=== PATIENT | female | born 1945 | race Caucasian/White ===

== ENCOUNTER 2018-08-20 10:45 | Observation (INO) | payer OTHER ==
[~2018-08-20] VITALS: Ht 160 cm; Wt 81.6 kg
[2018-08-20] VITALS (11 sets, daily range): BP systolic 85–122; BP diastolic 42–92
[2018-08-20 11:21] LABS: ABSOLUTE NEUTROPHILS 3.4 thou/uL (1.4-8.2); EOSINOPHILS 2.9 % (0.0-3.0); HEMATOCRIT 41.6 % (37.0-47.0); HEMOGLOBIN 13.9 gm/dL (12.0-15.0); LYMPHOCYTES 39.4 % (24.0-44.0); MCH 28.9 pg (26.0-34.0); MCHC 33.5 g/dL (28.0-37.0); MCV 86.3 fL (80.0-100.0); MONOCYTES 6.6 % (1.0-8.0); PLATELET COUNT 223 thou/uL (150-400); POLYS 50.1 % (36.0-66.0); RBC 4.82 mil/uL (4.20-5.00); RDW 13.5 % (10.5-14.5); WBC 6.7 thou/uL (4.0-11.0)
[2018-08-20 11:28] LABS: CALCIUM 9.8 mg/dL (8.5-10.1); CREATININE 0.9 mg/dL (0.6-1.0); POTASSIUM 3.7 mmol/L (3.5-5.1)
[2018-08-20 11:32] LABS: APTT 29.5 Seconds (24.5-32.8); PROTIME 10.4 Seconds (9.3-11.4)
[2018-08-20 11:34] LABS: ALBUMIN 3.3 g/dL (3.4-5.0); TOTAL BILIRUBIN 0.6 mg/dL (<0.1-1.0); TOTAL PROTEIN 7.2 g/dL (6.4-8.2)
[2018-08-20] MEDS ORDERED: SORINE 80 MG TA80 M1 PO (12:07)
[2018-08-20] MEDS ORDERED: XARELTO20 MG PO (12:08)
[2018-08-20] MEDS ORDERED: XANAX2 MG PO (12:09)
[2018-08-20] MEDS ORDERED: FLEXERIL PO (12:10)
[2018-08-20] MEDS ORDERED: VITAMIN D5000 UNIT PO (12:11)
[2018-08-20] MEDS ORDERED: TYLENOL325 MG PO (12:12)
[2018-08-20] MEDS ORDERED: LOPRESSOR25 PO (12:14)
[2018-08-20] MEDS ORDERED: LASIX 40 MG TAB40 M2 PO (12:16)
--- NOTE | 2018-08-20 15:43 | NUR ---
PT ARRIVED TO UNIT APPROX 1540. FAMILY PRESENT AT BEDSIDE. PT ALERT AND ORIENTED X4. DENIES PAIN AND SOA. VSS. POST PACEMAKER PROTOCOL INITIATED. LEFT CHEST PACEMAKER SITE C/D/I. CLOSED EXTERNALLY WITH SURGICAL GLUE. AV PACED ON THE ADMISSION TELE STRIP. PT AND FAMILY UPDATED ON POC. ALL DENY QUESTIONS OR CONCERNS REGARDING POC AT THIS TIME.
--- NOTE | 2018-08-20 17:28 | NUR ---
PT COMPLETING POST EP PROCEDURE PROTOCOL WITHOUT ISSUE. VSS. LEFT CHEST PACEMAKER SITE C/D/I. PT REPORTS 5/10 PAIN BUT REFUSES PAIN MEDS AT THIS TIME. FAMILY AT BEDSIDE. PT REPORTS ITCHING TO NECK AND TO RIGHT AC WHERE TAPE WAS PRESENT. TOPICAL BENADRY FOR TREATMENT. NO DISTRESS NOTED AT THIS TIME.
[2018-08-21 00:48] VITALS: BP 147/76
--- NOTE | 2018-08-21 03:19 | NUR ---
ASSUMED CARE 1899. VSS- AV PACED. ASSESSMENT CHARTED. L CHEST INCISION INTACT/DRY. PT C/O OF INCISION PAIN CONTROLED WITH PRN PAIN MEDS. NO ITCHING OF SIGHT THIS SHIFT. L ARM IMOBILIZER IN PLACE. X1 ASSIST TO COMMOD. PT HAVING TROUBLE ON AND OFF SLEEPING STATES SHE USUALLY SLEEPS ON LEFT SIDE, BED UNCOMFORTABLE. PLAN FOR CXR FOR PACER PLACEMENT THIS AM. WILL CONTINUE TO MONITOR AND WITH POC.
[2018-08-21 04:28] VITALS: BP 122/70
[2018-08-21 07:09] VITALS: BP 129/75
[2018-08-21 10:32] VITALS: BP 129/75
--- NOTE | 2018-08-21 10:53 | NUR ---
ASSUMED CARE AT 0715. OX4, NO C/O NAUSEA, VOMITING, DIARRHEA OR CP. S/P PACEMAKER PLACEMENT ON 08/20. INSERTION SITE TO LEFT CHEST APPROXIMATED AND MININAL SWELLING. EFRAIN, PT REPORTS TENDER AND SORE AT SITE. AV PACED ON MONITOR. DISCHARGE INSTRUCTIONS COMPLETED AND WAITING FOR TRANSPORT. DISCHARGED IN STABLE CONDITION.
--- NOTE | 2018-08-27 14:17 | P ---
[facility] [place] [address] PROCEDURE REPORT Name: LACEY ROMAN Room #: 211-P [facility] MAyan#: [id number] Admission: 08/20/18 ������������������ Attend Phys: Ronak Hernandez MD Discharge: 08/21/18 ������������������ Date of : 47 Report #: [id number] THIS REPORT FOR: //name// CC: Dario Montgomery DATE OF SERVICE: 08/20/2018 PROCEDURE: Dual-chamber pacemaker. PREOPERATIVE DIAGNOSIS: Sick sinus syndrome. POSTOPERATIVE DIAGNOSIS: Sick sinus syndrome. HISTORY OF PRESENT ILLNESS: The patient is a 73-year-old female with history of atrial fibrillation status post ablation with continued episodes of atrial fibrillation, who has symptomatic bradycardia and tachycardia-bradycardia syndrome. She is here for a dual chamber pacemaker implantation. ANESTHESIA: The patient underwent MAC anesthesia with no anesthesia related complications. PROCEDURE IN DETAIL: The patient underwent informed consent. We discussed the details of the procedure including the risks, which include but not limited to bleeding, infection, vascular damage, cardiac perforation, and pneumothorax. She understood these risks and is willing to proceed. The patient was brought to the EP Laboratory in a fasting and nonsedated state and prepped and draped in sterile fashion. She underwent venogram showing patency of the left axillary vein and she received IV antibiotics prior to the procedure. Next, lidocaine was injected below the level of left clavicle and an incision was made. A pocket was created over the prepectoral fascia. Then, access was obtained twice to the left axillary vein using the extrathoracic approach with sheaths positioned using the modified Seldinger technique. Next, under fluoroscopy, leads were positioned in the right ventricular apex and right atrial appendage, both with adequate pacing and sensing thresholds. Leads were sutured to the prepectoral fascia. The pocket was irrigated and the device was connected to the leads. Tug tests were performed. The pocket was closed in 2 layers using 2-0 for the deep layer and 3-0 for the middle layer. Surgical glue was placed in the outer skin layer. The patient awoke neurologically and hemodynamically intact. No complications and no significant bleeding. The implanted pacemaker was a Medtronic, model number W3DR01, serial number [id number]. The atrial lead was a model number 5076, 45 cm, serial number [facility] [address] [place] [address] PROCEDURE REPORT Name: LACEY ROMAN Sharla Room #: 211-P CEC[facility] Lam#: [id number] Admission: 08/20/18 ������������������ Attend Phys: Ronak Hernandez MD Discharge: 08/21/18 ������������������ Date of : 47 Report #: [id number] with a P-wave of 1.1 millivolts, pacing impedance of 513 ohms and the pacing threshold 0.5 volts at 0.5 milliseconds. The RV lead was a Medtronic, model number 5076, 52 cm, serial number [id number] with a R-wave of 10.9 millivolts, pacing impedance of 836 ohms and a pacing threshold of 0.5 volts at 0.4 milliseconds. The pacemaker was programmed to the DDDR 60-120 mode. CONCLUSIONS: 1. Successful dual-chamber pacemaker implantation. 2. Satisfactory atrial and ventricular pacing and sensing thresholds. ��������������������������������������������� <ELECTRONICALLY SIGNED> ���������������������������������������� By: Ronak Hernandez MD ��������������������������������������������� 08/27/18 1417 1423 0254 Ronak Hernandez MD /nt
--- NOTE | 2018-08-27 14:17 | D ---
[facility] [place] [address] DISCHARGE SUMMARY Name: LACEY ROMAN Room #: 211-P [facility] Marcelo M.R.#: [id number] Admission: 08/20/18 ������������������ Attend Phys: Ronak Hernandez MD Discharge: 08/21/18 ������������������ Date of : 47 Report #: [id number] THIS REPORT FOR: //name// CC: Dario Hernandez DATE OF SERVICE: 08/21/2018 DISCHARGE DIAGNOSES: 1. Sick sinus syndrome. 2. Tachycardia-bradycardia syndrome. 3. Paroxysmal atrial fibrillation. PROCEDURES PERFORMED: Medtronic dual chamber pacemaker implantation. HISTORY: The patient is a 73-year-old female with history of atrial fibrillation status post ablation as well as a worsening symptomatic bradycardia due to sick sinus syndrome. She is here for pacemaker implantation. She underwent successful Medtronic MRI compatible dual chamber pacemaker implantation with no complications. HOSPITAL COURSE: The patient was monitored in the hospital overnight. She did well with no issues. On the day of discharge, she was doing well. She denied any chest pain or shortness of breath. She denied any PND or orthopnea. She did not have any significant pain at the incision site. PHYSICAL EXAMINATION: GENERAL: No acute distress. HEART: Regular rate and rhythm. LUNGS: Clear to auscultation bilaterally. SKIN: Incision was healing nicely with some mild bruising, but no hematoma. DIAGNOSTIC DATA: Her chest x-ray showed stable lead position with no pneumothorax. A device check was performed that was within normal limits. DISCHARGE INSTRUCTIONS: As such, she was deemed stable for discharge home. She will continue with her same medications, but we will hold off on resuming her anticoagulation until Monday. She will follow up in the EP clinic in 7-10 days. She was instructed not to get the incision wet for a week. No driving [facility] [address] [place] [address] DISCHARGE SUMMARY Name: ABELLACEY K Room #: 211-P [facility]#: [id number] Admission: 08/20/18 ������������������ Attend Phys: Ronak Hernandez MD Discharge: 08/21/18 ������������������ Date of : 47 Report #: [id number] for a week. Do not lift the left elbow above the shoulder for 6 weeks and do not lift more than 10 pounds with left arm for 6 weeks. ��������������������������������������������� <ELECTRONICALLY SIGNED> ���������������������������������������� By: Ronak Hernandez MD ��������������������������������������������� 08/27/18 1417 0821 1233 Ronak Hernandez MD /nt
== END 2018-08-21 11:13 | disposition home or self-care (01) ==
LOC: CATH 10:45 → 2N 15:28 → ENTRNSPT 08-21 10:59 → EDTRNSPTSTS 08-21 11:02 → 2N 08-21 11:13
PROVIDERS: ADMIT Internal Medicine Cardiovascular Disease
DX: I49.5 Sick sinus syndrome (principal); I48.0 Paroxysmal atrial fibrillation
CPT/HCPCS: 62110; 62900; 70005